=== PATIENT | female | born 1970 | race Two or more races ===

== ENCOUNTER 2024-02-05 13:03 | Outpatient (CLI) | payer OTHER | END 2024-02-05 13:09 | disposition home or self-care (01) | LOC: RAD 13:03 | PROVIDERS: ATTEND Orthopaedic Surgery | DX: M79.671 Pain in right foot (principal) ==

== ENCOUNTER 2024-02-05 14:09 | Outpatient (CLI) | payer OTHER ==
[2024-02-05 14:44] LABS: SYNOVIAL FLUID APPEARANCE HAZY; SYNOVIAL FLUID COLOR YELLOW
[2024-02-05 16:52] LABS: POLYMORPHONUCLEAR 4 %
[2024-02-05 16:53] LABS: MONONUCLEAR 96 %
== END 2024-02-05 14:14 | disposition home or self-care (01) ==
LOC: LAB 14:09
PROVIDERS: ATTEND Orthopaedic Surgery
DX: M25.461 Effusion, right knee (principal)

== ENCOUNTER 2024-08-23 11:58 | Outpatient (CLI) | payer OTHER | END 2024-08-23 12:02 | disposition home or self-care (01) | LOC: RAD 11:58 | DX: M54.2 Cervicalgia (principal); M16.0 Bilateral primary osteoarthritis of hip; M54.51 Vertebrogenic low back pain; M25.561 Pain in right knee; M17.11 Unilateral primary osteoarthritis, right knee; M70.51 Other bursitis of knee, right knee; M76.31 Iliotibial band syndrome, right leg; M25.512 Pain in left shoulder; M25.511 Pain in right shoulder ==